=== PATIENT | male | born 1975 | race Two or more races ===

== ENCOUNTER 2021-12-07 09:00 | Outpatient (CLI) | payer OTHER ==
[2021-12-07 10:03] VITALS: BP 131/86
--- NOTE | 2021-12-07 10:03 | SLEEP CARE CONSULTATION ---
Information from patient questionnaire entered by Nicole Sousa MA. I have reviewed and concur with the information entered by Nicole Sousa MA. This document represents the service I personally performed and the decisions made by Dominguez green Caren J, ARNP. History of Present Illness Service Date and Time: 12/07/2021 0900 Reason for Visit: New patient (onset 09/2021, no priors,) Chief Complaint: reports: Insomnia, Unrefreshed sleep, Snoring, Excessive dayti me sleepiness, Observed pauses in breathing, Fatigue, Frequent awakenings at night Date of Onset: 2 YEARS Usual bedtime: [employer] Time it takes to fall asleep: 4 HOURS Snores at night: Yes Observed to quit breathing while asleep: Yes Sleeps alone due to snoring: No Number of times waking at night: 2 Reasons for waking at night: reports: Bathroom Toss, Turn, or Twitch while sleeping: Yes Recalls having dreams: No 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 His current complaints are excessive daytime sleepiness, fatigue, frequent night awakenings, insomnia, observed pauses in breathing, snoring and unrefreshed sleep. He has been seeing someone who has naeem d him that he snores. He will sometimes have a hard time falling asleep and will then stay up all night and then "crash" the next day. He has been having "weird breaths" that sound like gasping that wake him up and he goes to the bathroom. He states he usually does not feel rested in the mornings and tired throughout the day. 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 Patient is Single and lives in . Have you smoked in the past 12 months: No Alcohol use: No Caffeine use: Yes Caffeine amount and frequency: 1 X DAILY Family History Family history of sleep disordered breathing: No Allergies and Home Medications Known drug allergies: No Drug allergies reviewed: Yes (NKDA) Home medication list reviewed: Yes Allergy and home medication list: Ibuprofen OTC Loratidine Viagra as needed Review of Systems Weight gain over past 5 years: 30 Cardiovascular: reports: high blood pressure (measure in Pcp office, better with recheck) Respiratory: reports: shortness of breath, wheeze Gastrointestinal: reports: heartburn Psychiatric: reports: anxiety Ear/Nose/Throat: reports: sinus problems, wisdom teeth removed, other (surgery to nose for devited septum). denies: tonsillectomy Musculoskeletal: reports: joint pain, neck pain, back pain. denies: muscle pain or cramping Immunologic: denies: allergies to food or environment Physical Exam Vital signs obtained and entered by: AARON Costello Blood Pressure: 131/86 (RIGHT, PULSE 84, RESP 16,) Cuff size: wrist Heart Rate: 83 O2 Saturation: 96 (PAPER MASK) Height: 5 ft 11 in Weight: 245 lb Body Mass Index: 34.2 BMI Classification: Obese Neck circumference: 18.75 (inches) Mouth and throat: narrow oropharynx Soft palate: long Hard palate: arched Uvula: normal Uvula visualization: 25% Mallampati Class III Tongue: enlarged in size with teeth voss on lateral edges Tonsils: 1+ Neck: normal w/o lymphadenopathy or thyromegaly Heart: regular rate and rhythm Lungs: clear bilaterally Impression and Plan 1. Suspected Obstructive Sleep Apnea-Hypopnea Syndrome, as suggested by a history of loud and irregular snoring, observed cessation of breath while asleep, gasping or choking in sleep, morning headache, unrefreshed sleep, and excessive daytime sleepiness. Narrow oropharynx and obesity are common predisposing factors for obstructive sleep apnea-hypopnea syndrome. I recommend proceeding to polysomnography to confirm the diagnosis and to assess severity. Patient stated during visit that he is leaving for [place] tomorrow because he is being transferred by the [facility]. I did ask patient if he wanted to continue the visit and he stated he did. I reviewed with him that we cannot get a test authorized and completed before he leaves. I recommend that he follow-up in [place] with another sleep provider because he does have a high probability of having sleep apnea and should have a polysomnography/HST evaluation done. The pathophysiology of obstructive sleep apnea-hypopnea syndrome was discussed with the patient and health risks of cardiovascular and cerebrovascular disease if not treated. Patient agreed to plan. * Follow up in [place] to obtain PSG to evaluate for sleep apnea. * Avoid alcohol, sedative and muscle relaxant around bedtime. * Attempt to lose weight. * Return as needed for follow-up Counseling Topics: Weight loss health impact Visit Type: In Office Time Spent with Patient (minutes): 32 Provider Statement: I spent 100% of the Face to Face Visit with the patient with greater than 50% spent counseling the patient and coordination of care.
== END 2021-12-07 09:01 | disposition home or self-care (01) ==
LOC: SC 09:00
PROVIDERS: ATTEND Nurse Practitioner Family
DX: R06.83 Snoring (principal); G47.8 Other sleep disorders; R51.9 Headache, unspecified; G47.10 Hypersomnia, unspecified; E66.9 Obesity, unspecified; Z68.34 Body mass index [BMI] 34.0-34.9, adult
CPT/HCPCS: 99203; 99212